=== PATIENT | female | born 1940 | race Caucasian/White ===

== ENCOUNTER 2020-05-23 13:20 | Outpatient (CLI) | payer MEDICARE, SELFPAY ==
--- NOTE | 2020-05-23 13:37 | ECHO_ITS ---
Patient Info Name: Bessy Wallace Age: 79 years : 1940 Gender: Female Ht: 60 in Wt: 112 lbs BSA: 1.47 m2 HR: 88 bpm BP: 145 / 77 mmHg Technical Quality: Fair Exam Date: 05/23/2020 1:47 PM Exam Location: [facility] Patient Status: Outpatient Admit Date: 05/23/2020 Staff Ordering Physician: Leo Rea PA-C Flooring Helper: Mariela Smith RDCS Attending Provider: Leo Rea PA-C Referring Physician: Rona WELSH; Exam Type: CA echo doppler color flow Study Info Indications R01.1 - Cardiac murmur, unspecified Complete two-dimensional, color flow and Doppler transthoracic echocardiogram is performed. Summary 1. Left ventricular chamber dimension is normal. 2. Ventricular septum is sigmoid shaped. 3. Left ventricular systolic function is normal, estimated at 60-65%. 4. The left ventricular diastolic function is grade II diastolic dysfunction. 5. E/e' 11 is mildly elevated. 6. Global longitudinal strain is normal at -19.2%. 7. Mild systolic anterior motion of mitral valve. No LVOT obstruction. 8. There is trace tricuspid valve regurgitation. 9. No pulmonary hypertension, estimated pulmonary arterial systolic pressure is 30 mmHg. Left Ventricle Ventricular septum is sigmoid shaped. E/e' 11 is mildly elevated. Global longitudinal strain is normal at -19.2%. Left ventricular chamber dimension is normal. Left ventricular systolic function is normal, estimated at 60-65%. The left ventricular diastolic function is grade II diastolic dysfunction. Right Ventricle Right ventricular chamber dimension is normal. Right ventricular systolic function is normal. Left Atria Left atrial chamber dimension is normal. Right Atria Right atrial chamber dimension is normal. Aortic Valve The aortic valve is trileaflet. There is no aortic valve stenosis. There is no aortic valve regurgitation. Pulmonic Valve There is no pulmonic regurgitation. Mitral Valve Mild systolic anterior motion of mitral valve. No LVOT obstruction. There is no mitral valve stenosis. There is no mitral valve regurgitation. Tricuspid Valve There is trace tricuspid valve regurgitation. No pulmonary hypertension, estimated pulmonary arterial systolic pressure is 30 mmHg. Pericardium/Pleural There is no pericardial effusion. Inferior Vena Cava Normal inferior vena cava with >50% collapse upon inspiration consistent with normal right atrial pressure, 5 mmHg. Aorta The aortic root size at the sinus of Valsalva is normal. Left Ventricular Outflow Tract Name Value Normal LVOT 2D LVOT Diameter 1.9 cm LVOT Doppler LVOT Peak Gradient 4 mmHg LVOT Mean Gradient 3 mmHg LVOT VTI 25 cm LVOT VTI/AV VTI Ratio 0.8 LVOT Stroke Volume 70 ml LVOT CO 5.4 l/min LVOT CI 3.7 l/min/m2 Pulmonic Valve Name
== END 2020-05-23 13:21 | disposition home or self-care (01) ==
PROVIDERS: PCP Physician Assistant; Visit Provider Physician Assistant
DX: R01.1 Cardiac murmur, unspecified (principal); R60.0 Localized edema
CPT/HCPCS: 93306

== ENCOUNTER 2021-01-01 10:27 | Outpatient (CLI) | payer MEDICARE, SELFPAY ==
[2021-01-01 11:14] LABS: Hematocrit 39.8 % (37.0-47.0); Hemoglobin 13.5 g/dL (12.0-15.0); Mean Corpuscular HGB Conc 33.9 g/dl (32-36); Mean Corpuscular Volume 88.4 fl (80-100); Mean Platelet Volume 9.3 fl (7.4-10.4); Platelet Count Result 316 k/mm3 (150-375); Red Cell Distribution Width 14.1 % (11.5-14.5); White Blood Count 6.6 K/mm3 (4.5-10.0)
[2021-01-01 11:31] LABS: Alanine Aminotransferase 15 U/L (4-35); Albumin Level 4.4 g/dL (3.5-5.1); Alkaline Phosphatase 75 U/L (38-126); Anion Gap 6 mmol/L (8-16); Aspartate Amino Transferase 30 U/L (14-36); Bilirubin,Total 0.4 mg/dL (0.2-1.3); Blood Urea Nitrogen 10 mg/dL (7-17); Calcium 10.2 mg/dL (8.4-10.2); Carbon Dioxide 30 mmol/L (22-30); Chloride 101 mmol/L (98-107); Estimated Glomerular Filt Rate > 60; Glucose 102 mg/dL (65-105); Potassium 4.6 mmol/L (3.4-5.0); Sodium 137 mmol/L (137-145)
[2021-01-01 12:00] LABS: Free T4 Free Thyroxine 1.35 ng/mL (0.78-2.19)
[2021-01-01 12:50] LABS: Folic Acid > 20.0 ng/mL (2.76->20); Vitamin B12 > 1000.0 pg/mL (239-931)
== END 2021-01-01 10:28 | disposition home or self-care (01) ==
PROVIDERS: PCP Physician Assistant; Visit Provider Physician Assistant
DX: R53.83 Other fatigue (principal); E03.9 Hypothyroidism, unspecified
CPT/HCPCS: 36415; 80053; 82607; 82746; 84439; 84443; 85027

== ENCOUNTER → 2021-11-30 08:27 | Outpatient (CLI) | payer MEDICARE, SELFPAY ==
[2021-11-30 20:42] LABS: SARS-CoV-2 RNA PCR Positive
== END ==
PROVIDERS: PCP Physician Assistant; Visit Provider Physician Assistant
DX: U07.1 COVID-19 (principal)
CPT/HCPCS: C9803; U0003; U0005

== ENCOUNTER 2022-01-01 09:43 | Outpatient (CLI) | payer MEDICARE, SELFPAY ==
[2022-01-01 11:02] LABS: Hematocrit 34.3 % (37.0-47.0); Hemoglobin 11.2 g/dL (12.0-15.0); Mean Corpuscular HGB Conc 32.7 g/dl (32-36); Mean Corpuscular Hemoglobin 27.2 pg (26-34); Mean Corpuscular Volume 83.3 fl (80-100); Mean Platelet Volume 8.9 fl (7.4-10.4); Platelet Count Result 471 k/mm3 (150-375); Red Blood Count 4.12 M/mm3 (4.2-5.4); Red Cell Distribution Width 14.7 % (11.5-14.5); White Blood Count 6.2 K/mm3 (4.5-10.0)
[2022-01-01 11:27] LABS: Free T4 Free Thyroxine 0.99 ng/mL (0.78-2.19)
[2022-01-01 11:53] LABS: Alanine Aminotransferase 18 U/L (4-35); Albumin Level 4.4 g/dL (3.5-5.1); Alkaline Phosphatase 88 U/L (38-126); Anion Gap 4 mmol/L (8-16); Aspartate Amino Transferase 28 U/L (14-36); Bilirubin,Total 0.2 mg/dL (0.2-1.3); Blood Urea Nitrogen 12 mg/dL (7-17); Calcium 9.6 mg/dL (8.4-10.2); Carbon Dioxide 30 mmol/L (22-30); Chloride 100 mmol/L (98-107); Estimated Glomerular Filt Rate > 60; Glucose 108 mg/dL (65-110); Potassium 4.7 mmol/L (3.4-5.0); Sodium 134 mmol/L (137-145)
[2022-01-01 12:56] LABS: Folic Acid > 20.0 ng/mL (2.76->20); Vitamin B12 > 1000.0 pg/mL (239-931)
== END 2022-01-01 09:44 | disposition home or self-care (01) ==
PROVIDERS: PCP Physician Assistant; Visit Provider Physician Assistant
DX: E03.9 Hypothyroidism, unspecified (principal); R53.83 Other fatigue
CPT/HCPCS: 36415; 80053; 82607; 82746; 84439; 84443; 85027

== ENCOUNTER 2022-07-04 11:37 | Outpatient (CLI) | payer MEDICARE, SELFPAY ==
[2022-07-04 12:54] LABS: Basophils Percent Auto 0.2 % (0.2-1.2); Eosinophils Absolute Auto 0.2 K/mm3 (0-0.3); Eosinophils Percent Auto 2.5 % (0-4.4); Hematocrit 36.1 % (37.0-47.0); Hemoglobin 11.3 g/dL (12.0-15.0); Immature Granulocyte Absolute 0.04 K/mm3 (0.00-0.031); Immature Granulocyte Percent A 0.5 % (0-0.5); Lymphocytes Absolute Auto 2.01 K/mm3 (0.9-3.2); Lymphocytes Percent Auto 23.8 % (18.3-44.2); Mean Corpuscular HGB Conc 31.3 g/dl (32-36); Mean Corpuscular Hemoglobin 27.1 pg (26-34); Mean Corpuscular Volume 86.6 fl (80-100); Mean Platelet Volume 9.4 fl (7.4-10.4); Monocytes Absolute Auto 0.9 K/mm3 (0.1-0.6); Monocytes Percent Auto 10.4 % (2.6-8.5); Neutrophils Absolute Auto 5.3 K/mm3 (1.3-6.7); Neutrophils Percent Auto 62.6 % (45.5-73.1); Platelet Count Result 349 k/mm3 (150-375); Red Blood Count 4.17 M/mm3 (4.2-5.4); Red Cell Distribution Width 16.9 % (11.5-14.5); White Blood Count 8.4 K/mm3 (4.5-10.0)
[2022-07-04 13:19] LABS: Iron 43 ug/dL (37-170)
[2022-07-04 13:28] LABS: Percent Iron Saturation 11 % (20-50)
== END 2022-07-04 11:38 | disposition home or self-care (01) ==
LOC: ANHLAB 11:40
PROVIDERS: PCP Physician Assistant; Visit Provider Physician Assistant
DX: D64.9 Anemia, unspecified (principal)
CPT/HCPCS: 36415; 83540; 83550; 85025

== ENCOUNTER 2022-09-06 11:15 | Emergency (ER) | payer MEDICARE, SELFPAY ==
--- NOTE | ~2022-09-06 | US_ITS ---
EXAMINATION:US venous doppler LE RT INDICATION:Leg swelling TECHNIQUE: Multiple grayscale, color flow and Doppler images of the right lower extremity deep venous systems were obtained and reviewed. COMPARISON:No prior studies for comparison. FINDINGS: The common femoral, superficial femoral and popliteal veins demonstrate normal respiratory variation, augmentation and compressibility. Color flow is also seen within the posterior tibial, pe roneal, greater saphenous and profunda veins. IMPRESSION: 1: No lower extremity deep venous thrombosis. Reviewed, dictated and finalized at location A.
[2022-09-06 11:18] VITALS: BP 139/51; PULSE 90; RESP 16; TEMP 37.3; O2SAT 99
[2022-09-06 14:21] LABS: D Dimer 1.36 ug/mL (<0.48)
--- NOTE | 2022-09-06 14:29 | ED.GENADULT ---
HPI - General Adult General Chief complaint: Skin/Abscess/Foreign Body Stated complaint: sent by PCP for ankle swelling Time Seen by Provider: 09/06/22 11:24 History of Present Illness HPI narrative: 81-year-old female presents for evaluation of right lower extremity redness and swelling throughout the week. Patient was seen at an urgent care and started on Keflex but they felt they should come to the ER for a second opinion. No prior DVT. No chest pain or shortness of breath. Related Data Home Medications Medication Instructions Recorded Confirmed mecobalamin (vitamin B12) 5,000 5,000 mcg PO DAILY 06/27/20 08/20/22 mcg lozenge multivitamin (Multiple Vitamins 1 tablet PO DAILY 06/27/20 08/20/22 tablet) turmeric 400 mg capsule mg PO 06/27/20 08/20/22 cephalexin 500 mg capsule mg 09/06/22 Allergies Allergy/AdvReac Type Severity Reaction Status Date / Time Penicillins Allergy Severe breathing Verified 08/20/22 14:24 problems amoxicillin Allergy Mild Unknown Verified 08/20/22 14:24 POTASSIUM CLAVULANATE Allergy Mild Unknown Uncoded 08/20/22 14:24 Review of Systems Review of Systems: CONSTITUTIONAL: Denies fever, chills, or sweats. EYES: Denies visual changes, redness, or discharge. ENT: Denies rhinorrhea, congestion, sore throat, or otalgia. CARDIOVASCULAR: Denies chest pain, palpitations, or edema. RESPIRATORY: Denies cough or dyspnea. GASTROINTESTINAL: Denies abdominal pain, nausea, vomiting, or diarrhea. GENITOURINARY: Denies dysuria or hematuria. SKIN: Denies rash or itching. MUSCULOSKELETAL: Denies back pain, joint pain, or myalgia. NEUROLOGIC: Denies headache, numbness, or weakness. PSYCHIATRIC: Denies anxiety or depression. [facility] Past Medical History Medical History (Updated 09/06/22 @ 15:22 by Ramón Rockwell DO) Dementia Family History Family History Other Diabetes mellitus Social History Social History Smoking status: Never smoker Second hand tobacco smoke exposure: No Alcohol intake: never Alcohol use details: very rarely Substance use: never Exam Narrative: GENERAL: Well-appearing, well-nourished, and in no acute distress. HEAD: Normocephalic, atraumatic. EYES: PERRLA and EOMI. ENT: Nares clear, no rhinorrhea or epistaxis. Mucous membranes moist. NECK: Supple. CHEST: Clear to auscultation. No respiratory distress. HEART: Regular rate and rhythm. No murmur heard. Normal peripheral pulses. ABDOMEN: Soft, nontender, nondistended, normal active bowel sounds. EXTREMITIES: Normal range of motion. No edema. SKIN: Warm, dry, no rash. Right ankle erythema and 2+ pitting edema NEURO: No focal deficits. Alert and oriented x3. PSYCH: Normal mood and affect. Course Vital Signs Vital signs: Vital Signs Temperature 99.2 F 09/06/22 11:18 Pulse Rate 90 09/06/22 11:18 Respiratory Rate 16 09/06/22 11:18 Blood Pressure 139/51 L 09/06/22 11:18 Pulse Oximetry 99 09/06/22 11:18 Oxygen Delivery Room Air 09/06/22 11:18 Temperature 99.2 F 09/06/22 11:18 Pulse Rate 90 09/06/22 11:18 Respiratory Rate 16 09/06/22 11:18 Blood Pressure 139/51 L 09/06/22 11:18 Pulse Oximetry 99 09/06/22 11:18 Oxygen Delivery Room Air 09/06/22 11:18 Medical Decision Making MDM Narrative Medical decision making narrative: D-dimer is positive, venous Doppler with no evidence of DVT. He is already taking Keflex we will add Bactrim to her antibiotic regimen. Vital Signs Vital Signs: Vital Signs Temperature 99.2 F 09/06/22 11:18 Pulse Rate 90 09/06/22 11:18 Respiratory Rate 16 09/06/22 11:18 Blood Pressure 139/51 L 09/06/22 11:18 Pulse Oximetry 99 09/06/22 11:18 Oxygen Delivery Room Air 09/06/22 11:18 Temperature 99.2 F 09/06/22 11:18 Pulse Rate 90 09/06/22 11:18 Respiratory Rate 16 09/06/22 11:18 Bloo
== END 2022-09-06 16:05 | disposition home or self-care (01) ==
PROVIDERS: Emergency Provider Emergency Medicine; PCP Physician Assistant
DX: L03.115 Cellulitis of right lower limb (principal); F03.90 Unspecified dementia, unspecified severity, without behavioral disturbance, psychotic disturbance, mood disturbance, and anxiety
CPT/HCPCS: 36415; 85380; 93971; 99284

== ENCOUNTER 2023-01-03 08:26 | Outpatient (CLI) | payer MEDICARE, SELFPAY ==
[2023-01-03 09:51] LABS: Hemoglobin 11.4 g/dL (12.0-15.0); Mean Corpuscular HGB Conc 31.7 g/dl (32-36); Mean Corpuscular Hemoglobin 28.2 pg (26-34); Mean Corpuscular Volume 89.1 fl (80-100); Mean Platelet Volume 9.7 fl (7.4-10.4); Platelet Count Result 325 k/mm3 (150-375); Red Blood Count 4.04 M/mm3 (4.2-5.4); Red Cell Distribution Width 15.7 % (11.5-14.5); White Blood Count 6.8 K/mm3 (4.5-10.0)
[2023-01-03 10:06] LABS: Alanine Aminotransferase 20 U/L (6-35); Albumin Level 4.1 g/dL (3.5-5.1); Alkaline Phosphatase 80 U/L (38-126); Anion Gap 6 mmol/L (8-16); Aspartate Amino Transferase 29 U/L (14-36); Bilirubin,Total 0.4 mg/dL (0.2-1.3); Blood Urea Nitrogen 8 mg/dL (7-17); Calcium 9.1 mg/dL (8.4-10.2); Carbon Dioxide 28 mmol/L (22-30); Chloride 102 mmol/L (98-107); Cholesterol 236 mg/dL (0-200); Estimated Glomerular Filt Rate > 60; Glucose 101 mg/dL (65-110); HDL Direct 72 mg/dL; Potassium 4.2 mmol/L (3.4-5.0); Sodium 136 mmol/L (137-145); Triglycerides 76 mg/dL (<150)
[2023-01-03 10:17] LABS: LDL Cholesterol Direct 103 mg/dL
[2023-01-03 10:19] LABS: Free T4 Free Thyroxine 1.56 ng/mL (0.78-2.19)
[2023-01-03 11:10] LABS: Folic Acid 19.2 ng/mL (2.76->20)
== END 2023-01-03 08:27 | disposition home or self-care (01) ==
PROVIDERS: PCP Physician Assistant; Visit Provider Physician Assistant
DX: R53.83 Other fatigue (principal); E03.9 Hypothyroidism, unspecified; E78.5 Hyperlipidemia, unspecified
CPT/HCPCS: 36415; 80053; 80061; 82607; 82746; 84439; 84443; 85027

== ENCOUNTER 2023-02-11 15:30 | Outpatient (RCR) | payer MEDICARE, SELFPAY ==
--- NOTE | 2023-01-15 15:11 | PTOPEVAL1 ---
Assessment and note entered by Radha Escoto, PT Evaluation Information Assessment Status Evaluation Diagnosis weakness of legs Subjective Information had one fall few days ago, with rushing around home when son came to pick her up--loss of balance with turning around; son helped her up off the floor; have not been doing any leg exercises, is weaker and not as active as she used to be; does go out with family, but not as much as before; Reported Pain Level Pain Score 0: Self Report Assessment PT Clinical Summary Tasia has the diagnosis of leg weakness. She has had one fall and does not do any leg exercises. She lives alone, with her 2 sons assisting with laundry, transportation and home tasks PRN. She does have the diagnosis of dementia, but cooperative, followed commands and able to recall her history info. With the evaluation, she has decreased strength of R and L LE, TUG time of 28 seconds, 2 minute walking test distance of 200', Tinetti balance score of 16/28= high risk for falls; Skilled PT services are indicated for therapeutic exercises to increase LE strength, gait and balance skills, education for safety with mobility and HEP. Plan of Care Interventions Gait Training,Neuro Re-education,Patient/Caregiver Education,Therapeutic Activities,Therapeutic Exercise PT Services Indicated Yes Treatment Frequency and 2x/wk for 4 weeks Duration These treatments will address the objective and functional deficits as defined above. The patient will be advanced safely and appropriately in order for the patient to progress towards his/her prior level of function. Additional exercises will be introduced and as well as a comprehensive home exercise program upon discharge, if needed, ?to ensure carryover of functional gains achieved in the clinic. This treatment plan has been reviewed and agreement upon by the patient.
--- NOTE | 2023-02-11 16:14 | PTOPDC ---
Assessment and note entered by Radha Escoto, PT Evaluation Information Assessment Status Discharge Diagnosis weakness of legs Subjective Information Tasia and her son Armani report: no falls, walking better, doing her exercises at home, have been going into basement and doing laundry; ready to be done with therapy. Reported Pain Level Pain Score 0: Self Report Assessment PT Clinical Summary Tasia has received 6 PT sessions. Compared to the initial evaluation, she has improved in all areas: LE strength, TUG time by 6 sec, Tinetti balance score by 8 points; sit/stand transfer without use of UE's; education completed for HEP and safety; 2 minute walking test distance is the same; The goals were achieved, except 2 min walk time distance. Discharge PT services. Plan of Care PT Services Indicated No
== END 2023-03-31 10:30 | disposition home or self-care (01) ==
LOC: ANHPT 15:30
PROVIDERS: PCP Physician Assistant; Visit Provider Physician Assistant
DX: R29.898 Other symptoms and signs involving the musculoskeletal system (principal)
CPT/HCPCS: 97110; 97112; 97116; 97161; 97530

== ENCOUNTER 2023-05-01 11:13 | Outpatient (CLI) | payer MEDICARE, SELFPAY ==
[2023-05-01 12:25] LABS: Appearance Urine Clear (Clear); Bilirubin Urine Negative (Negative); Blood Urine Negative (Negative); Color Urine Dark Yellow (Yellow); Glucose Urine UA Negative (Negative); Ketones Urine Negative (Negative); Leukocyte Esterase Ur Negative LEU/UL (NEGATIVE); Nitrate Urine Negative (Negative); Protein Urine Negative (Negative); Specific Grav Ur 1.014 (1.001-1.035); Urobilinogen Urine 0.2 mg/dL (<2.0)
[2023-05-01 12:30] LABS: Add Urine Microscopic? NO
== END 2023-05-01 11:14 | disposition home or self-care (01) ==
PROVIDERS: PCP Physician Assistant; Visit Provider Physician Assistant
DX: R35.0 Frequency of micturition (principal)
CPT/HCPCS: 81003; 87086

== ENCOUNTER 2023-06-20 13:04 | Outpatient (RCR) | payer MEDICARE, SELFPAY ==
[2023-06-20 13:20] VITALS: BMI 23.8
== END 2023-09-04 13:40 | disposition home or self-care (01) ==
LOC: ANHWOC 13:04
PROVIDERS: PCP Physician Assistant; Visit Provider Physician Assistant
DX: L97.919 Non-pressure chronic ulcer of unspecified part of right lower leg with unspecified severity (principal)
CPT/HCPCS: 99213; A9270; G0463

== ENCOUNTER 2023-07-15 12:50 | Outpatient (CLI) | payer MEDICARE, SELFPAY ==
--- NOTE | 2023-07-15 12:57 | ECHO_ITS ---
Patient Info Name: Tasia Wallace Age: 82 years : 1940 Gender: Female Ht: 62 in Wt: 135 lbs BSA: 1.65 m2 HR: 68 bpm BP: 156 / 74 mmHg Technical Quality: Fair Exam Date: 07/15/2023 1:09 PM Exam Location: [facility] Patient Status: Outpatient Admit Date: 07/15/2023 Staff Ordering Physician: Leo Rea PA-C Turkey Farmer: Mariela Smith RDCS Attending Provider: Leo Rea PA-C Referring Physician: Rona WELSH; Exam Type: CA echo doppler color flow Study Info Indications R60.0 - Localized edema Complete two-dimensional, color flow and Doppler transthoracic echocardiogram is performed. Summary 1. Complete two-dimensional, color flow and Doppler transthoracic echocardiogram is performed. 2. Left ventricular chamber dimension is normal. 3. Left ventricular systolic function is normal, estimated at 60-65%. 4. The left ventricular diastolic function is grade I diastolic dysfunction. 5. Global longitudinal strain is normal lat -18.0%. 6. Left atrial chamber dimension is mildly enlarged. 7. There is moderate aortic valve sclerosis. 8. There is trace tricuspid valve regurgitation. 9. No pulmonary hypertension, estimated pulmonary arterial systolic pressure is 33 mmHg. Left Ventricle Global longitudinal strain is normal lat -18.0%. Tissue doppler is not performed. Left ventricular chamber dimension is normal. Left ventricular systolic function is normal, estimated at 60-65%. The left ventricular diastolic function is grade I diastolic dysfunction. Right Ventricle Right ventricular systolic function is normal and with normal TAPSE 2.6 cm. Right ventricular chamber dimension is normal. Left Atria Left atrial chamber dimension is mildly enlarged. Right Atria Right atrial chamber dimension is normal. Aortic Valve The aortic valve is trileaflet. There is moderate aortic valve sclerosis. There is no aortic valve stenosis. There is no aortic valve regurgitation. Pulmonic Valve There is no pulmonic regurgitation. Mitral Valve There is no mitral valve stenosis. There is no mitral valve regurgitation. Tricuspid Valve There is trace tricuspid valve regurgitation. No pulmonary hypertension, estimated pulmonary arterial systolic pressure is 33 mmHg. Pericardium/Pleural There is no pericardial effusion. Inferior Vena Cava Normal inferior vena cava with >50% collapse upon inspiration consistent with normal right atrial pressure, 5 mmHg. Aorta The aortic root size at the sinus of Valsalva is normal. Left Ventricular Outflow Tract Name Value Normal LVOT 2D LVOT Diameter 1.9 cm LVOT Doppler LVOT Peak Gradient 7 mmHg LVOT Mean Gradient 4 mmHg LVOT VTI 31 cm LVOT VTI/AV VTI Ratio 0.8 LVOT Stroke Volume 92 ml LVOT CO 6.3 l/min LVOT CI 3.8 l/min/m2 Pulmonic Valve Name Value Normal
== END 2023-07-15 12:51 | disposition home or self-care (01) ==
LOC: ANHCARD 12:52
PROVIDERS: PCP Physician Assistant; Visit Provider Physician Assistant
DX: R60.0 Localized edema (principal)
CPT/HCPCS: 93306

== ENCOUNTER 2023-08-16 21:45 | Inpatient (IN) | payer MEDICARE, SELFPAY ==
--- NOTE | ~2023-08-16 | XR_ITS ---
XR chest 1V portable DATE: 08/16/2023 23:58 INDICATION: Altered mental status TECHNIQUE: Portable upright AP chest on 08/16/2023 at 2336 hours COMPARISON: None FINDINGS: There is mild infiltrate or atelectasis in the lower lung zones. The lungs otherwise appear clear. No pleural effusion is evident. There is pulmonary vascular redistribution and mild prominenc e of minor fissure which may indicate mild congestive change. Aortic calcification. Osteopenia. IMPRESSION: Mild congestive changes Mild infiltrate or atelectasis in the lower lung zones Reviewed, dictated and finalized at location A.
--- NOTE | ~2023-08-16 | CT_ITS ---
EXAMINATION: CT abdomen pelvis wo con DATE: 08/17/2023 01:47 INDICATION: Acute renal failure TECHNIQUE: Computed tomography (CT) of the abdomen and pelvis was performed without intravenous contr ast. Automated exposure control and iterative reconstruction technique were employed. Exam dose: 635 .81 mGy-cm total exam DLP. COMPARISON: None. FINDINGS: Calcified right hilar and subcarinal nodes and calcified right lower lobe pulmonary granulo mas, consistent with old granulomatous disease. Additionally, there are multiple calcified hepatic an d splenic granulomas. No infiltrate or consolidation in the lower lung zones. Heart size is within normal range. No pericar dial or pleural effusion. Small sliding hiatal hernia. 1.3 cm probable lateral segment left hepatic cyst. Multiple stones in the dependent aspect of the gallbladder. The gallbladder is distended. No gallblad doris wall thickening or pericholecystic fluid or fat stranding is noted. No pancreatic mass lesion, calcification or ductal dilatation is detected. Normal morphology of the adrenal glands. 2.5 mm left renal nonobstructing calculus. No other urinary tract calculus or hydroureteronephrosis is detected. The uterus and adnexal areas are unremarkable. There is extensive calcification of the abdominal aorta and proximal right renal artery. Normal gina brandy of the abdominal aorta. No intraperitoneal or retroperitoneal mass lesion or lymphadenopathy or ascites. Bilateral fat containing inguinal hernias. There are numerous diverticula of the left colon; no evidence of diverticulitis. No bowel obstructio n or free air. Moderate anterior wedge compression fracture deformity of T12, likely chronic. Grade 1 anterolisthesis at L4-5 due to degenerative changes apophyseal joints. Mildly severe degenera tive disc disease at L5-S1. IMPRESSION: Small sliding hiatal hernia Probable left hepatic 1.3 cm cyst Cholelithiasis Nonobstructing 2.5 mm left renal calculus Diverticulosis of the colon; no evidence of diverticulitis Reviewed, dictated and finalized at Location A. Reviewed, dictated and finalized at location A.
--- NOTE | ~2023-08-16 | CT_ITS ---
EXAMINATION: CT brain wo con DATE: 08/16/2023 23:42 INDICATION: Altered mental status. TECHNIQUE: Computed tomography (CT) of the head was performed without intravenous contrast. The mA wa s adjusted according to patient size. Iterative reconstruction technique was employed. The dose-lengt h product was 605.33 mGy-cm. COMPARISON: Head CT 10/14/2019 FINDINGS: There are scattered areas of low attenuation in the cerebral white matter. There is no intr acranial hemorrhage, acute infarction, or abnormal intracranial mass lesion. The ventricles are urvashi l in size. There are likely changes of ocular lens replacement surgeries. There is mild mucosal thick ening in the paranasal sinuses. The mastoid air cells are normal. IMPRESSION: 1. Stable mild nonspecific cerebral white matter disease, which likely represents chronic small vesse l ischemic disease. Reviewed, dictated and finalized at location E. IMPRESSION: 1. Stable mild nonspecific cerebral white matter disease, which likely represen ts chronic small vessel ischemic disease.
[2023-08-16 21:46] VITALS: BP 107/43; PULSE 80; RESP 17; TEMP 36.7; O2SAT 97
[2023-08-16 22:32] VITALS: PULSE 74
[2023-08-16 22:34] VITALS: BP 122/38; PULSE 71; RESP 18; TEMP 37; O2SAT 96
--- NOTE | 2023-08-16 23:08 | ECG_ITS ---
Measurements Intervals [place] Rate: 70 P: 32 MA: 157 QRS: 18 QRSD: 135 T: 17 QT: 458 QTc: 497 Interpretive Statements SINUS RHYTHM ATRIAL PREMATURE COMPLEXES RIGHT BUNDLE BRANCH BLOCK BASELINE ARTIFACT- I, II, III, AVR, AVL, AVF ABNORMAL ECG COMPARED TO ECG 10/14/2019 16:08:22 RIGHT BUNDLE-BRANCH BLOCK NOW PRESENT Electronically Signed On 08-17-2023 7:49:29 CDT by Ryan South D.O.
[2023-08-16 23:30] LABS: Alveolar/Arterial O2 Gradient 17.7 mmHg; Base Excess ABG 1.7 mEq/l (+/-2.0); Fractional Inspired Oxygen 21 %; HCO3 ABG 25.6 mEq/l (22.0-26.0); Oxygen Content ABG 14.4 %vol (16.0-22.0); Oxyhemoglobin 95.2 % THb (90.0-100.0); PCO2 ABG 37.4 mmHg (35.0-45.0); PO2 ABG 87.2 mmHg (80.0-100.0); PO2 FiO2 Ratio Arterial Blood 4.15 %; Site Drawn RIGHT BRACHIAL; Total Hemoglobin 10.7 g/dL (12.0-18.0); pH ABG 7.453 (7.350-7.450)
[2023-08-16 23:31] LABS: Device ROOM AIR
--- NOTE | 2023-08-16 23:44 | ED.GENADULT ---
HPI - General Adult General Chief complaint: Altered Mental Status Stated complaint: confusion Time Seen by Provider: 08/16/23 22:43 History of Present Illness HPI narrative: Patient 82-year-old female who presents the emergency department with chief complaint of altered mental status. Per the patient's family the patient is normally alert and oriented x4 and able to answer all questions the last known well was around 9 PM last night where she was able to answer all questions appropriately the son reports that during the day today he talked her on the phone and she seemed initially normal but then had some episodes of confusion. The patient denies chest pain denies shortness of breath denies fever they report no trauma to report there were no signs of falls at the house or signs of trauma at the house. Patient denies vomiting denies diarrhea denies chest pain or shortness of breath Related Data Home Medications Medication Instructions Recorded Confirmed multivitamin (Multiple Vitamins 1 tablet PO DAILY 06/27/20 06/20/23 tablet) aripiprazole 5 mg tablet 5 mg PO DAILY 01/06/23 06/20/23 Allergies Allergy/AdvReac Type Severity Reaction Status Date / Time Penicillins Allergy Severe breathing Verified 06/26/23 13:57 problems amoxicillin Allergy Mild Unknown Verified 06/26/23 13:57 POTASSIUM CLAVULANATE Allergy Mild Unknown Uncoded 06/26/23 13:57 Review of Systems Review of Systems: A 10 system review of systems was completed on the patient and is negative except for what is stated in the HPI. Nursing and ancillary documentation was reviewed. [facility] Past Medical History Medical History (Updated 08/17/23 @ 04:32 by Julien Shen MD) Dementia Family History Family History Other Diabetes mellitus Social History Social History Smoking status: Never smoker Second hand tobacco smoke exposure: No Alcohol intake: never Alcohol use details: very rarely Substance use: never Substance use type: does not use Lack of Transportation: No Lack of Food: Never True Current Housing: I Have Housing Concerned About Future Housing: No Difficulty Paying Gas/Electric Bills: No Difficulty Paying for Meds: No Currently Unemployed: No Education: High School Diploma/GED Difficulty w/ Childcare or Family Care: No Living arrangements: alone Occupation/Education: retired Gender identity (if verbalized by the patient): Female Exam Narrative: GENERAL: Well-appearing, well-nourished, and in no acute distress. HEAD: Normocephalic, atraumatic. EYES: PERRLA and EOMI. ENT: Nares clear, no rhinorrhea or epistaxis. Mucous membranes moist. NECK: Supple. CHEST: Clear to auscultation. No respiratory distress. HEART: Regular rate and rhythm. No murmur heard. Normal peripheral pulses. ABDOMEN: Soft, nontender, nondistended, normal active bowel sounds. EXTREMITIES: Normal range of motion. No edema. SKIN: Warm, dry, no rash. NEURO: No focal deficits. Alert and oriented x2 slow to respond confused. PSYCH: Normal mood and affect. Course Vital Signs Vital signs: Vital Signs Temperature 36.7 C 08/16/23 21:46 Pulse Rate 80 08/16/23 21:46 Respiratory Rate 17 08/16/23 21:46 Blood Pressure 107/43 L 08/16/23 21:46 Pulse Oximetry 97 08/16/23 21:46 Oxygen Delivery Room Air 08/16/23 21:46 Temperature 36.6 C 08/17/23 03:50 Pulse Rate 60 08/17/23 03:50 Respiratory Rate 15 08/17/23 03:50 Blood Pressure 135/55 L 08/17/23 03:50 Pulse Oximetry 96 08/17/23 03:50 Oxygen Delivery Room Air 08/16/23 21:46 Medical Decision Making MDM Narrative Medical decision making narrative: Differential diagnosis includes UTI, pneumonia, electrolyte abnormality, dehydration Laboratory studies were obtained on the patient which showed a white count of 8.9 hemo
[2023-08-16 23:47] LABS: Ethanol < 10 mg/dL (<10)
[2023-08-16 23:48] LABS: Alanine Aminotransferase 19 U/L (6-35); Albumin Level 3.9 g/dL (3.5-5.1); Alkaline Phosphatase 77 U/L (38-126); Anion Gap 10 mmol/L (8-16); Aspartate Amino Transferase 37 U/L (14-36); Bilirubin,Total 0.3 mg/dL (0.2-1.3); Blood Urea Nitrogen 34 mg/dL (7-17); Calcium 9.3 mg/dL (8.4-10.2); Carbon Dioxide 29 mmol/L (22-30); Chloride 89 mmol/L (98-107); Estimated CRCL calculation 13 ml/min; Estimated Glomerular Filt Rate 18; Glucose 131 mg/dL (65-110); Sodium 128 mmol/L (137-145)
[2023-08-16 23:53] LABS: INR 0.9; Prothrombin Time 12.7 Seconds (11.1-14.7)
[2023-08-16 23:54] LABS: Partial Thromboplastin Time 29.7 SECONDS (22.3-36.8)
[2023-08-16 23:59] LABS: Troponin I 0.028 ng/mL (0.000-0.034)
[2023-08-17] VITALS (10 sets, daily range): BP systolic 124–159; BP diastolic 55–67; PULSE 60–99; RESP 12–20; TEMP 36.4–36.6; O2SAT 94–100; BMI 27.3
[2023-08-17 00:05] LABS: Basophils Percent Auto 0.3 % (0.2-1.2); Eosinophils Percent Auto 0.2 % (0-4.4); Hematocrit 30.8 % (37.0-47.0); Hemoglobin 10.1 g/dL (12.0-15.0); Immature Granulocyte Absolute 0.04 K/mm3 (0.00-0.031); Immature Granulocyte Percent A 0.4 % (0-0.5); Lymphocytes Absolute Auto 1.59 K/mm3 (0.9-3.2); Lymphocytes Percent Auto 17.8 % (18.3-44.2); Mean Corpuscular HGB Conc 32.8 g/dl (32-36); Mean Corpuscular Hemoglobin 27.7 pg (26-34); Mean Corpuscular Volume 84.4 fl (80-100); Mean Platelet Volume 8.6 fl (7.4-10.4); Monocytes Absolute Auto 1.1 K/mm3 (0.1-0.6); Monocytes Percent Auto 12.6 % (2.6-8.5); Neutrophils Absolute Auto 6.1 K/mm3 (1.3-6.7); Neutrophils Percent Auto 68.7 % (45.5-73.1); Platelet Count Result 476 k/mm3 (150-375); Red Blood Count 3.65 M/mm3 (4.2-5.4); Red Cell Distribution Width 18.7 % (11.5-14.5); White Blood Count 8.9 K/mm3 (4.5-10.0)
[2023-08-17 00:23] LABS: Procalcitonin 2.7 ng/mL
[2023-08-17 01:10] LABS: Influenza A QL RT-PCR Negative (Negative); Influenza B QL RT-PCR Negative (Negative); SARS-CoV-2 RNA PCR Negative (Negative)
[2023-08-17 01:12] LABS: Amphetamine Screen Urine Negative (Negative); Barbiturate Screen Urine Negative (Negative); Benzodiazepines Screen Urine Negative (Negative); Cannabinoid Screen Urine Negative (Negative); Cocaine Screen Urine Negative (Negative); Methadone Screen Urine Negative (Negative); Opiate Screen Urine Negative (Negative); Phencyclidine Screen Urine Negative (Negative)
[2023-08-17 01:18] LABS: Appearance Urine Cloudy (Clear); Bacteria Urine None Seen /hpf; Bilirubin Urine 1+ (Negative); Blood Urine Negative (Negative); Color Urine Dark Yellow (Yellow); Glucose Urine UA Negative (Negative); Ketones Urine Trace mg/dL (Negative); Leukocyte Esterase Ur Negative LEU/UL (Negative); Need Manual Microscopic Reviewed; Nitrate Urine Negative (Negative); Non Pathogenic Casts >20; Protein Urine Negative (Negative); Specific Grav Ur 1.022 (1.001-1.035); Squamous Epithelial Cell Urine None seen /hpf (Few); Urobilinogen Urine 0.2 mg/dL (<2.0); WBC Urine 0-5 /hpf
[2023-08-17 01:19] LABS: Add Urine Microscopic? YES
[2023-08-17] MEDS: SODIUM CHLORIDE 0.9% IV 1,000 ML 999 ML IV CONT (01:36)
--- NOTE | 2023-08-17 03:04 | PM.IMHP ---
H&P: HPI History of Present Illness Date/Time: 08/17/23 03:04 Chief Complaint: patient was brought to the ER for evaluation with altered mental status Narrative: She is a very pleasant 82 years old white female who is brought in by son for evaluation due to confusion. Patient called her yesterday and she initially had a normal conversation but then he noticed some episodes of confusion. She was brought to the ER for evaluation. Workup was done which showed dehydration and Sukhdev and IV hydration. Son tells me that patient had dental surgery in her upper gum 2 weeks ago and that could be the reason why she is not eating or drinking much. She is being placed in observation status for IV hydration and labs followup. Review of Systems Review of Systems: All systems reviewed & are unremarkable except as noted in HPI and below PMFSH Past Medical History Medical History (Updated 08/17/23 @ 04:32 by Julien Shen MD) Dementia Family History Family History Other Diabetes mellitus Social History Social History Smoking status: Never smoker Second hand tobacco smoke exposure: No Alcohol intake: never Alcohol use details: very rarely Substance use: never Substance use type: does not use Lack of Transportation: No Lack of Food: Never True Current Housing: I Have Housing Concerned About Future Housing: No Difficulty Paying Gas/Electric Bills: No Difficulty Paying for Meds: No Currently Unemployed: No Education: High School Diploma/GED Difficulty w/ Childcare or Family Care: No Living arrangements: alone Occupation/Education: retired Gender identity (if verbalized by the patient): Female Spiritual care concerns: No Meds Home Medications and Allergies Home Medications Medication Instructions Recorded Confirmed Type multivitamin (Multiple Vitamins 1 tablet PO DAILY 06/27/20 06/20/23 History tablet) donepezil 10 mg tablet 10 mg PO QHS #90 tabs 09/10/22 06/20/23 Rx aripiprazole 5 mg tablet 5 mg PO DAILY 01/06/23 06/20/23 History levothyroxine 112 mcg tablet See Rx Instructions .Route 01/06/23 06/20/23 Rx .COMPLEX #90 tabs pantoprazole 40 mg tablet,delayed 40 mg PO QAM #90 tabs 02/05/23 06/20/23 Rx release tolterodine 4 mg capsule,extended 4 mg PO DAILY #30 caps 03/06/23 06/20/23 Rx release 24 hr losartan 50 mg tablet 50 mg PO DAILY #90 tabs 06/02/23 06/20/23 Rx quetiapine 25 mg tablet See Rx Instructions .Route 06/02/23 06/20/23 Rx .COMPLEX #45 tabs mupirocin 2 % topical ointment 1 applic topical TID #22 grams 06/13/23 06/20/23 Rx collagenase clostridium histo. 250 1 applic topical DAILY #30 grams 06/16/23 06/20/23 Rx unit/gram topical ointment (Santyl) furosemide 40 mg tablet 40 mg PO QAM #90 tabs 06/16/23 06/20/23 Rx memantine 10 mg tablet See Rx Instructions .Route 06/26/23 06/26/23 Rx .COMPLEX #60 tabs citalopram 40 mg tablet 40 mg PO DAILY #90 tabs 07/09/23 Rx Allergies Allergy/AdvReac Type Severity Reaction Status Date / Time Penicillins Allergy Severe breathing Verified 06/26/23 13:57 problems amoxicillin Allergy Mild Unknown Verified 06/26/23 13:57 POTASSIUM CLAVULANATE Allergy Mild Unknown Uncoded 06/26/23 13:57 Vital Signs Vital Signs - 24 hr 08/16/23 21:46 08/16/23 22:32 08/16/23 22:34 Temperature 36.7 C 37.0 C Pulse Rate 80 74 71 Respiratory Rate 17 18 Blood Pressure 107/43 L 122/38 L Pulse Oximetry 97 96 Oxygen Delivery Room Air 08/17/23 00:55 08/17/23 02:28 Temperature Pulse Rate 72 62 Respiratory Rate 12 15 Blood Pressure 149/59 H 124/58 L Pulse Oximetry 98 98 Oxygen Delivery Exam Narrative: PHYSICAL EXAMINATION: Vital signs: Please see the chart General physical exam: patient feels tired and fatigued. She is interacting well with the staff and answering questions Head/eyes:
[2023-08-17 03:06] LABS: Troponin I 0.025 ng/mL (0.000-0.034)
[2023-08-17] MEDS: SODIUM CHLORIDE 0.9% IV 1,000 ML 100 ML IV CONT (03:49)
[2023-08-17 05:42] LABS: Anion Gap 6 mmol/L (8-16); Blood Urea Nitrogen 34 mg/dL (7-17); Carbon Dioxide 27 mmol/L (22-30); Chloride 94 mmol/L (98-107); Estimated CRCL calculation 16 ml/min; Estimated Glomerular Filt Rate 23; Glucose 99 mg/dL (65-110); Magnesium 1.8 mg/dL (1.6-2.3); Phosphorus 4.4 mg/dL (2.5-4.5); Potassium 3.6 mmol/L (3.4-5.0); Sodium 127 mmol/L (137-145)
--- NOTE | 2023-08-17 06:15 | ADMGEN ---
This patient, Tasia Wallace, was admitted to [facility] Surg Room 325-01. Patient/family oriented to hospital policies and general routines including ID bracelet, bed and alarms, visiting hours, pain management, procedures, bathroom and other care routines, personal items, smoking policy, room service/diet, and visiting hours. Information on how to activate the Rapid Response Team has been discussed. Patient/Family are encouraged to report perceived risks to care and to ask questions if they do not understand what they are told or what they should do.
[2023-08-17] MEDS: BENZOCAINE 20% DENTAL GEL 9 GM TUBE 1 APPLIC BY MOUTH (11:29)
[2023-08-17 14:36] LABS: Anion Gap 9 mmol/L (8-16); Blood Urea Nitrogen 25 mg/dL (7-17); Calcium 8.7 mg/dL (8.4-10.2); Carbon Dioxide 23 mmol/L (22-30); Chloride 95 mmol/L (98-107); Estimated CRCL calculation 24 ml/min; Estimated Glomerular Filt Rate 36; Glucose 145 mg/dL (65-110); Potassium 3.2 mmol/L (3.4-5.0); Sodium 127 mmol/L (137-145)
--- NOTE | 2023-08-17 15:07 | PM.IMPN ---
Progress Note: A&P Assessment and Plan (1) BEKA (acute kidney injury): Code(s): N17.9 - Acute kidney failure, unspecified Status: Acute Assessment and Plan: watch bmp (2) Dehydration: Code(s): E86.0 - Dehydration Status: Acute Assessment and Plan: Patient received IV hydration in the form of IV normal saline in the ER Continue with IV hydration with normal saline at 100 cc/hour Continue fluids (3) Urinary frequency: Code(s): R35.0 - Frequency of micturition Status: Acute Assessment and Plan: order UA UC (4) Hyperlipidemia: Code(s): E78.5 - Hyperlipidemia, unspecified Status: Acute Assessment and Plan: chronic and stable (5) Anemia: Code(s): D64.9 - Anemia, unspecified Status: Acute Assessment and Plan: chronic and stable (6) Hypothyroidism: Code(s): E03.9 - Hypothyroidism, unspecified Status: Acute Assessment and Plan: chronic and stable (7) Dementia: Qualifiers: Dementia type: Alzheimer's Alzheimer's disease onset: late-onset Dementia behavioral disturbance: without behavioral disturbance Qualified Code(s): G30.1 - Alzheimer's disease with late onset; F02.80 - Dementia in other diseases classified elsewhere without behavioral disturbance Code(s): F03.90 - Unspecified dementia, unspecified severity, without behavioral disturbance, psychotic disturbance, mood disturbance, and anxiety Status: Acute Assessment and Plan: chronic and stable on dementia medications (8) Elevated procalcitonin: Code(s): R79.89 - Other specified abnormal findings of blood chemistry Status: Acute Subjective Date/time seen: 08/17/23 15:07 Interval history: 82 years old white female who is? brought in by son for evaluation due to confusion.? Pt is admitted with dehydration and not eating here creat is 1.4, sodium is low and potassium is low.? Review of Systems Review of Systems: Confused/ history of Alzheimers All systems reviewed & are unremarkable except as noted in HPI and below Objective Data Vital Signs Vital Signs: Vital Signs - 24 hr 08/16/23 21:46 08/16/23 22:32 08/16/23 22:34 Temperature 36.7 C 37.0 C Pulse Rate 80 74 71 Respiratory Rate 17 18 Blood Pressure 107/43 L 122/38 L Pulse Oximetry 97 96 Oxygen Delivery Room Air 08/17/23 00:55 08/17/23 02:28 08/17/23 03:50 Temperature 36.6 C Pulse Rate 72 62 60 Respiratory Rate 12 15 15 Blood Pressure 149/59 H 124/58 L 135/55 L Pulse Oximetry 98 98 96 Oxygen Delivery 08/17/23 05:49 08/17/23 06:25 08/17/23 06:00 Temperature 36.6 C 36.4 C Pulse Rate 60 72 72 Respiratory Rate 19 20 20 Blood Pressure 137/55 L 159/67 H Pulse Oximetry 94 100 100 Oxygen Delivery Room Air 08/17/23 04:00 08/17/23 08:15 08/17/23 14:00 Temperature 36.4 C 36.6 C Pulse Rate 72 94 Respiratory Rate 20 12 Blood Pressure 159/67 H 146/65 H Pulse Oximetry 100 98 Oxygen Delivery Room Air Intake/Output Intake/Output: Intake & Output 08/14/23 08/15/23 08/16/23 08/17/23 23:59 23:59 23:59 23:59 Intake Total 1238 Balance 1238 Meds/Results Medications: Active Medications Generic Name Dose Route Start Last Admin Trade Name Freq PRN Reason Stop Dose Admin Acetaminophen 650 mg 08/17/23 03:14 Acetaminophen 325 Mg Tablet PO Q4H PRN Mild Pain (1-3) or Fever Al Hydrox/Mg Hydrox/Simethicone 30 ml 08/17/23 03:14 Mag Hydrox/Al Hydrox/Simeth 30 Ml Udc PO QID PRN Dyspepsia Benzocaine 1 applic 08/17/23 10:24 08/17/23 11:29 Benzocaine 20% Dental Gel 9 Gm Tube BY MOUTH 1 applic QID PRN Administration Oral Pain Sodium Chloride 1,000 mls @ 100 mls/hr 08/17/23 03:15 08/17/23 03:49 Normal Saline Iv IV CONT 100 mls/hr .Q10H MAIDA Administration Radiology Results: ITS Impressions Head CT 08/17/23 00:36 IMPRESSIO
[2023-08-17] MEDS: POTASSIUM CHLORIDE 20 MEQ PACKET (FOR LIQUID) PO (16:54)
[2023-08-17] MEDS: CITALOPRAM HYDROBROMIDE 20 MG TABLET PO (16:58)
[2023-08-17] MEDS: MULTIVITAMINS THERAPEUTIC TAB (*BKC) 1 TABLET PO (16:58)
[2023-08-17] MEDS: PANTOPRAZOLE 40 MG TABLET PO (16:58)
[2023-08-17] MEDS: LOSARTAN POTASSIUM 50 MG TABLET PO (20:31)
[2023-08-17] MEDS: DONEPEZIL HCL 10 MG TABLET PO (20:31)
--- NOTE | 2023-08-17 20:36 | PC.NURSE ---
On 08/17/23, the FISHING TOOL SUPERVISOR, Shirley, provided care and [facility]. I have reviewed the FISHING TOOL SUPERVISOR's documentation and agree with the findings.
[2023-08-17 23:39] LABS: Toxigenic C. Diff INVALID (NEGATIVE)
[2023-08-18] MEDS: SODIUM CHLORIDE 0.9% IV 1,000 ML 100 ML IV CONT ×2 (02:49→15:24)
[2023-08-18 06:00] VITALS: BP 114/48; PULSE 73; RESP 18; TEMP 37.7; O2SAT 97
[2023-08-18 07:04] LABS: Anion Gap 4 mmol/L (8-16); Blood Urea Nitrogen 9 mg/dL (7-17); Calcium 8.2 mg/dL (8.4-10.2); Carbon Dioxide 27 mmol/L (22-30); Chloride 101 mmol/L (98-107); Estimated CRCL calculation 61 ml/min; Estimated Glomerular Filt Rate > 60; Glucose 106 mg/dL (65-110); Potassium 3.3 mmol/L (3.4-5.0); Sodium 132 mmol/L (137-145)
[2023-08-18 08:00] VITALS: PULSE 73; RESP 18; O2SAT 97
[2023-08-18] MEDS: CITALOPRAM HYDROBROMIDE 20 MG TABLET PO (08:24)
[2023-08-18] MEDS: PANTOPRAZOLE 40 MG TABLET PO (08:24)
[2023-08-18] MEDS: POTASSIUM CHLORIDE 20 MEQ PACKET (FOR LIQUID) PO ×2 (08:24→17:39)
[2023-08-18] MEDS: MULTIVITAMINS THERAPEUTIC TAB (*BKC) 1 TABLET PO (08:24)
[2023-08-18 14:00] VITALS: BP 148/65; PULSE 98; RESP 18; TEMP 37.1; O2SAT 96
--- NOTE | 2023-08-18 14:33 | PM.DS ---
DS: Admitting Diagnosis Discharge Date 08/19/2023 Admitting Diagnosis altered mental status DS: Discharge Diagnosis Discharge Diagnosis (1) BEKA (acute kidney injury): Code(s): N17.9 - Acute kidney failure, unspecified Status: Acute Assessment and Plan: kidney function is better with fluid hydration (2) Dehydration: Code(s): E86.0 - Dehydration Status: Acute Assessment and Plan: Patient received IV hydration in the form of IV normal saline in the ER Continue with IV hydration with normal saline at 100 cc/hour Continue fluids kidney function is better with fluid hydration (3) Urinary frequency: Code(s): R35.0 - Frequency of micturition Status: Acute Assessment and Plan: UC is negative (4) Hyperlipidemia: Code(s): E78.5 - Hyperlipidemia, unspecified Status: Acute Assessment and Plan: chronic and stable (5) Anemia: Code(s): D64.9 - Anemia, unspecified Status: Acute Assessment and Plan: chronic and stable (6) Hypothyroidism: Code(s): E03.9 - Hypothyroidism, unspecified Status: Acute Assessment and Plan: chronic and stable (7) Dementia: Qualifiers: Alzheimer's disease onset: late-onset Dementia behavioral disturbance: without behavioral disturbance Dementia type: Alzheimer's Qualified Code(s): G30.1 - Alzheimer's disease with late onset; F02.80 - Dementia in other diseases classified elsewhere without behavioral disturbance Code(s): F03.90 - Unspecified dementia, unspecified severity, without behavioral disturbance, psychotic disturbance, mood disturbance, and anxiety Status: Acute Assessment and Plan: chronic and stable on dementia medications (8) Elevated procalcitonin: Code(s): R79.89 - Other specified abnormal findings of blood chemistry Status: Acute DS: Summary Hospital Course Hospital Course: 82 years old white female who is? brought in by son for evaluation due to confusion.? Pt is admitted with dehydration and not eating here creat is 1.4, sodium is low and potassium is low.?Pt encouraged to drink fluids. pt having low grade fever today resolved overnight . UC and BC are negative pt ok to DC today. ? Long discussion with her son today patient lives with him and his they will need more help at home to look after her on discharge Pt has a known history of dementia.? Time Spent with Patient Time attestation: Total time spent providing and/or coordinating discharge services:40 minutes on day of DC Exam Narrative: PHYSICAL EXAMINATION: Neck: Supple, full range of motion, trachea midline CVS: S1 + S2 + 0, regular rate and rhythm, no murmurs Respiratory: Bilaterally fair air entry in both lung shanks, mild B/L crackles, symmetric chest expansion, no distress Abdomen: Soft, non-tender, bowel sounds +ve, no organomegaly Extremities: No clubbing, no cyanosis, no edema, no calf tenderness Musculoskeletal: Moves all, adequate range of motion, no muscle spasms Skin: Warm, dry, no jaundice, no cyanosis Neurological: Awake, alert, cranial nerves II-XII intact, no focal neurological deficits Psychiatric: Normal mood, non suicidal DS: Data Data Completed and Pending Labs on day of discharge: Labs from last 24 hours 08/18/23 08/17/23 08/17/23 06:14 22:03 13:46 Sodium 132 L 127 L Potassium 3.3 L 3.2 L Chloride 101 95 L Carbon Dioxide 27 23 Anion Gap 4 L 9 BUN 9 D 25 H Creatinine 0.50 L 1.40 H Estim Creat Clear Calc 61 24 Estimated GFR > 60 36 L Glucose 106 145 H Calcium 8.2 L 8.7 C. difficile (PCR) Invalid Preliminary micro results at discharge 08/17/23 03:17 Sputum Culture - Preliminary Sputum 08/16/23 23:56 Blood Culture - Preliminary Blood 08/16/23 23:56 Blood Culture - Preliminary Blood Discharge Plan Discharge Attending physician on discharge: Anika Caballero
--- NOTE | 2023-08-18 14:35 | PM.IMPN ---
Progress Note: A&P Assessment and Plan (1) BEKA (acute kidney injury): Code(s): N17.9 - Acute kidney failure, unspecified Status: Acute Assessment and Plan: kidney function is better with fluid hydration (2) Dehydration: Code(s): E86.0 - Dehydration Status: Acute Assessment and Plan: Patient received IV hydration in the form of IV normal saline in the ER Continue with IV hydration with normal saline at 100 cc/hour Continue fluids kidney function is better with fluid hydration (3) Urinary frequency: Code(s): R35.0 - Frequency of micturition Status: Acute Assessment and Plan: Await UC results Pt had a low grade fever today (4) Hyperlipidemia: Code(s): E78.5 - Hyperlipidemia, unspecified Status: Acute Assessment and Plan: chronic and stable (5) Anemia: Code(s): D64.9 - Anemia, unspecified Status: Acute Assessment and Plan: chronic and stable (6) Hypothyroidism: Code(s): E03.9 - Hypothyroidism, unspecified Status: Acute Assessment and Plan: chronic and stable (7) Dementia: Qualifiers: Dementia type: Alzheimer's Alzheimer's disease onset: late-onset Dementia behavioral disturbance: without behavioral disturbance Qualified Code(s): G30.1 - Alzheimer's disease with late onset; F02.80 - Dementia in other diseases classified elsewhere without behavioral disturbance Code(s): F03.90 - Unspecified dementia, unspecified severity, without behavioral disturbance, psychotic disturbance, mood disturbance, and anxiety Status: Acute Assessment and Plan: chronic and stable on dementia medications (8) Elevated procalcitonin: Code(s): R79.89 - Other specified abnormal findings of blood chemistry Status: Acute Subjective Date/time seen: 08/18/23 14:35 Interval history: 82 years old white female who is? brought in by son for evaluation due to confusion.? Pt is admitted with dehydration and not eating here creat is 1.4, sodium is low and potassium is low.?Pt encouraged to drink fluids, pt having low grade fever today awaiting UC and BC results. Long discussion with her son today patient lives with him and his they will need more help at home to look after her on discharge Pt has a known history of dementia. Review of Systems Review of Systems: No specific complaints Exam Narrative: Vital signs: Please see the chart General physical exam: patient feels tired and fatigued. Respiratory: Bilaterally fair air entry in both lung shanks, mild B/L crackles, symmetric chest expansion, no distress Abdomen: Soft, non-tender, bowel sounds +ve, no organomegaly Extremities: No clubbing, no cyanosis, no edema, no calf tenderness Musculoskeletal: Moves all, adequate range of motion, no muscle spasms Skin: Warm, dry, no jaundice, no cyanosis Neurological: Awake, alert, cranial nerves II-XII intact, no focal neurological deficits Psychiatric: Normal mood, non suicidal Objective Data Vital Signs Vital Signs: Vital Signs - 24 hr 08/17/23 22:00 08/17/23 19:50 08/18/23 06:00 Temperature 36.6 C 37.7 C H Pulse Rate 99 99 73 Respiratory Rate 18 18 18 Blood Pressure 156/60 H 114/48 L Pulse Oximetry 94 94 97 Oxygen Delivery Room Air Intake/Output Intake/Output: Intake & Output 08/15/23 08/16/23 08/17/23 08/18/23 23:59 23:59 23:59 23:59 Intake Total 2238 250 Output Total 800 Balance 2238 -550 Meds/Results Medications: Active Medications Generic Name Dose Route Start Last Admin Trade Name Freq PRN Reason Stop Dose Admin Acetaminophen 650 mg 08/17/23 03:14 Acetaminophen 325 Mg Tablet PO Q4H PRN Mild Pain (1-3) or Fever Al Hydrox/Mg Hydrox/Simethicone 30 ml 08/17/23 03:14 Mag Hydrox/Al Hydrox/Simeth 30 Ml Udc PO QID PRN Dyspepsia Benzocaine 1 applic 08/17/23 10:24 08/17/23 11:29
[2023-08-18] MEDS: POTASSIUM CHLORIDE 20 MEQ PACKET (FOR LIQUID) 40 MEQ PO (15:23)
[2023-08-18] MEDS: ACETAMINOPHEN 325 MG TABLET 650 MG PO (21:38)
[2023-08-18] MEDS: LOSARTAN POTASSIUM 50 MG TABLET PO (21:39)
[2023-08-18] MEDS: DONEPEZIL HCL 10 MG TABLET PO (21:39)
[2023-08-18 22:00] VITALS: BP 134/66; PULSE 75; RESP 18; TEMP 36.6; O2SAT 99
[2023-08-19] MEDS: SODIUM CHLORIDE 0.9% IV 1,000 ML 100 ML IV CONT (03:02)
[2023-08-19 05:58] VITALS: BP 148/64; PULSE 76; RESP 18; TEMP 36.1; O2SAT 96
--- NOTE | 2023-08-19 06:42 | PC.NURSE ---
pt noted to have 350mL of urine output measured by hickey catheter. Bladder scan performed to confirm, bladder scanner shows 0mL
[2023-08-19] MEDS: MULTIVITAMINS THERAPEUTIC TAB (*BKC) 1 TABLET PO (08:54)
[2023-08-19] MEDS: PANTOPRAZOLE 40 MG TABLET PO (08:54)
[2023-08-19] MEDS: CITALOPRAM HYDROBROMIDE 20 MG TABLET PO (08:54)
[2023-08-19] MEDS: POTASSIUM CHLORIDE 20 MEQ PACKET (FOR LIQUID) PO (08:55)
[2023-08-19 14:00] VITALS: BP 142/59; PULSE 68; RESP 13; TEMP 37.1; O2SAT 97
== END 2023-08-19 17:46 | disposition home or self-care (01) | DRG 641 ==
LOC: ANHED 08-17 04:31 → ANH3MEDSUR 08-17 05:22
PROVIDERS: Admitting Provider Family Medicine; Emergency Provider Emergency Medicine; PCP Physician Assistant; Visit Provider Family Medicine
DX: E86.0 Dehydration (principal); N17.9 Acute kidney failure, unspecified; R35.0 Frequency of micturition; E78.5 Hyperlipidemia, unspecified; D64.9 Anemia, unspecified; E03.9 Hypothyroidism, unspecified; R79.89 Other specified abnormal findings of blood chemistry; F03.90 Unspecified dementia, unspecified severity, without behavioral disturbance, psychotic disturbance, mood disturbance, and anxiety; Z20.822 Contact with and (suspected) exposure to COVID-19
CPT/HCPCS: 36415; 36600; 70450; 71045; 74176; 80048; 80053; 80307; 81001; 82805; 83605; 83735; 84100; 84145; 84484; 85025; 85610; 85730; 87040; 87070; 87086; 87205; 87493; 87636; 93005; 96360; 97161; 97165; 97535; 99285; A9270; G0378; J7030

== ENCOUNTER 2023-09-18 17:11 | Outpatient (CLI) | payer MEDICARE, SELFPAY ==
[2023-09-18 18:05] LABS: Alanine Aminotransferase 17 U/L (6-35); Albumin Level 4.6 g/dL (3.5-5.1); Alkaline Phosphatase 71 U/L (38-126); Anion Gap 11 mmol/L (8-16); Aspartate Amino Transferase 26 U/L (14-36); Bilirubin,Total 0.3 mg/dL (0.2-1.3); Blood Urea Nitrogen 36 mg/dL (7-17); Calcium 9.2 mg/dL (8.4-10.2); Carbon Dioxide 28 mmol/L (22-30); Chloride 94 mmol/L (98-107); Estimated Glomerular Filt Rate > 60; Glucose 98 mg/dL (65-110); Potassium 4.3 mmol/L (3.4-5.0); Sodium 133 mmol/L (137-145)
== END 2023-09-18 17:12 | disposition home or self-care (01) ==
LOC: ANHLAB 17:12
PROVIDERS: PCP Physician Assistant; Visit Provider Physician Assistant
DX: R60.0 Localized edema (principal)
CPT/HCPCS: 36415; 80053

== ENCOUNTER 2024-01-03 15:10 | Emergency (ER) | payer MEDICARE, SELFPAY ==
--- NOTE | ~2024-01-03 | XR_ITS ---
EXAMINATION: XR chest 2V Exam Date/Time: 01/03/2024 15:38 MANAGER MILITARY HISTORY: cough Comparison: 08/16/2023. RESULT: Lines, tubes, and devices: None. Lungs and pleura: Senescent changes. Scattered atheromatous calcifications. Ill-defined nodular opac ity in the right midlung, with no correlate in the lateral view. Streaky left medial basilar opacitie s. Cardiomediastinal silhouette: Stable. Other: No acute osseous or upper abdominal finding. Stable moderate wedge deformity at T12. IMPRESSION: Streaky left medial basilar opacities may represent atelectasis or infection. Ill-defined left midlung opacity without a correlating the lateral view, may represent a subtle focus of infection or atelectasis. Recommend follow-up to ensure resolution. Reviewed, dictated and finalized at [facility]. GER [employer] IMPRESSION: Streaky left medial basilar opacities may represent atelectasis or infection. Ill-defined left midlung opacity without a correlating the lateral view, may re present a subtle focus of infection or atelectasis. Recommend follow-up to ensu re resolution.
[2024-01-03 15:19] VITALS: BP 166/66; PULSE 86; RESP 16; TEMP 37.2; O2SAT 97
--- NOTE | 2024-01-03 15:40 | ED.URI ---
HPI - URI/Sore Throat General Chief Complaint: Upper Respiratory Infection Stated Complaint: Cough Source: patient Mode of arrival: ambulatory Limitations: no limitations History of Present Illness HPI Narrative: 83-year-old female with hx dementia presented for complaint of cough for almost 10 days. Patient is a poor historian, most of the HPI and ROS was obtained from her son. Denies shortness of breath, wheezing, nausea, vomiting, diarrhea, fevers or chills. Taking Mucinex. Related Data Home Medications Medication Instructions Recorded Confirmed multivitamin (Multiple Vitamins 1 tablet PO DAILY 06/27/20 08/17/23 tablet) citalopram 20 mg tablet (Celexa) 20 mg PO DAILY 08/17/23 08/17/23 Allergies Allergy/AdvReac Type Severity Reaction Status Date / Time Penicillins Allergy Severe breathing Verified 01/03/24 15:24 problems amoxicillin Allergy Mild Unknown Verified 01/03/24 15:24 POTASSIUM CLAVULANATE Allergy Mild Unknown Uncoded 01/03/24 15:24 Review of Systems Review of Systems: CONSTITUTIONAL: Denies body aches, fever, chills, or sweats. EYES: Denies visual changes, redness, or discharge. ENT: Denies rhinorrhea, congestion, sore throat, or otalgia. CARDIOVASCULAR: Denies chest pain, palpitations, or edema. RESPIRATORY: Reports cough, denies sob, wheezing. SKIN: Denies rash, itching MUSCULOSKELETAL: Denies back pain, joint pain, or myalgia. NEUROLOGIC: Denies headache, numbness, tingling, or weakness. All systems reviewed & are unremarkable except as noted in HPI and below PMFSH Past Medical History Medical History (Updated 01/03/24 @ 17:14 by Albina Huber APRN) Dementia Family History Family History Other Diabetes mellitus Social History Social History Smoking status: Never smoker Second hand tobacco smoke exposure: No Alcohol intake: never Alcohol use details: very rarely Substance use: never Substance use type: does not use Lack of Transportation: No Lack of Food: Never True Current Housing: I Have Housing Concerned About Future Housing: No Difficulty Paying Gas/Electric Bills: No Difficulty Paying for Meds: No Currently Unemployed: No Education: High School Diploma/GED Difficulty w/ Childcare or Family Care: No Living arrangements: alone Occupation/Education: retired Gender identity (if verbalized by the patient): Female Spiritual care concerns: No Comments At time of signature, I have reviewed and agree with nursing past medical, surgical, social and family history unless otherwise noted. Please see nursing chart for further information. There is no relevant family history pertinent to the presenting complaint Exam Narrative: GENERAL: Well-appearing EYES: EOMI. No redness or drainage. Conjunctivae normal. ENT: Mucous membranes pink and moist. No rhinorrhea. NECK: Normal AROM. Supple. CHEST: No respiratory distress. Lungs diminished to all shanks, frequent manager inpatient cough. HEART: Regular rate and rhythm. murmur is appreciated. EXTREMITIES: No edema. SKIN: Warm, dry, no rash. NEURO: Alert and oriented x1. Cooperative. Gait steady. PSYCH: Normal affect. Course Course Emergency Course: Patient is aware of diagnosis, understands and agrees to treatment plan. Anticipatory guidance given. Patient agrees to follow-up as directed and is aware of reasons to seek care at the emergency department. Portions of this record may have been created with voice recognition software Level of Care: Express Care Visit Vital Signs Vital signs: Vital Signs Temperature 99 F 01/03/24 15:19 Pulse Rate 86 01/03/24 15:19 Respiratory Rate 16 01/03/24 15:19 Blood Pressure 166/66 H 01/03/24 15:19 Pulse Oximetry 97 01/03/24 15:19 Temperature 99 F 01/03/24 15:19 Pulse Rate 86 01/03/24 15:19 Respiratory
== END 2024-01-03 17:16 | disposition home or self-care (01) ==
PROVIDERS: Emergency Provider Nurse Practitioner Family; PCP Physician Assistant
DX: R05.9 Cough, unspecified (principal); F03.90 Unspecified dementia, unspecified severity, without behavioral disturbance, psychotic disturbance, mood disturbance, and anxiety
CPT/HCPCS: 71046; 99213; G0463

== ENCOUNTER 2024-01-22 17:13 | Outpatient (CLI) | payer MEDICARE, SELFPAY ==
--- NOTE | ~2024-01-22 | XR_ITS ---
EXAMINATION: XR chest 2V DATE: 01/22/2024 17:37 INDICATION: Cough, unspecified. TECHNIQUE: Frontal and lateral views of the chest were obtained. COMPARISON: Chest 2 views 01/03/2024, CT abdomen and pelvis 08/17/2023 FINDINGS: There is chronic peripheral septal thickening in the lungs with a lower lung predominance. Calcified right lung nodules and calcified hilar lymph nodes are consistent with old granulomatous di sease. No pleural effusion or pneumothorax. The heart size is normal. IMPRESSION: 1. Chronic interstitial lung disease. Reviewed, dictated and finalized at location E. OGRAPHIC PRINTER
[2024-01-22 18:11] LABS: Basophils Percent Auto 0.7 % (0.2-1.2); Eosinophils Absolute Auto 0.1 K/mm3 (0-0.3); Eosinophils Percent Auto 1.8 % (0-4.4); Hemoglobin 10.1 g/dL (12.0-15.0); Immature Granulocyte Absolute 0.01 K/mm3 (0.00-0.031); Immature Granulocyte Percent A 0.2 % (0-0.5); Lymphocytes Absolute Auto 1.72 K/mm3 (0.9-3.2); Lymphocytes Percent Auto 28.8 % (18.3-44.2); Mean Corpuscular HGB Conc 30.6 g/dl (32-36); Mean Corpuscular Hemoglobin 24.9 pg (26-34); Mean Corpuscular Volume 81.5 fl (80-100); Mean Platelet Volume 8.8 fl (7.4-10.4); Monocytes Absolute Auto 0.8 K/mm3 (0.1-0.6); Monocytes Percent Auto 13.9 % (2.6-8.5); Neutrophils Absolute Auto 3.3 K/mm3 (1.3-6.7); Neutrophils Percent Auto 54.6 % (45.5-73.1); Platelet Count Result 378 k/mm3 (150-375); Red Blood Count 4.05 M/mm3 (4.2-5.4); Red Cell Distribution Width 22.1 % (11.5-14.5)
[2024-01-22 18:33] LABS: Anisocytosis 1+ (NORMAL); Hypochromasia 1+ (NORMAL); Ovalocytes 1+ (NORMAL); Platelet Estimate Adequate (Adequate); Schistocytes None Seen (NORMAL)
[2024-01-22 19:12] LABS: Alanine Aminotransferase 19 U/L (6-35); Albumin Level 4.5 g/dL (3.5-5.1); Alkaline Phosphatase 73 U/L (38-126); Anion Gap 8 mmol/L (8-16); Aspartate Amino Transferase 33 U/L (14-36); Bilirubin,Total 0.4 mg/dL (0.2-1.3); Blood Urea Nitrogen 21 mg/dL (7-17); Calcium 9.4 mg/dL (8.4-10.2); Carbon Dioxide 29 mmol/L (22-30); Chloride 95 mmol/L (98-107); Cholesterol 264 mg/dL (0-200); Estimated Glomerular Filt Rate > 60; Glucose 139 mg/dL (65-110); HDL Direct 94 mg/dL; Potassium 4.3 mmol/L (3.4-5.0); Sodium 132 mmol/L (137-145); Triglycerides 143 mg/dL (<150)
[2024-01-22 19:23] LABS: LDL Cholesterol Direct 121 mg/dL
[2024-01-22 20:07] LABS: Free T4 Free Thyroxine 0.99 ng/mL (0.78-2.19)
[2024-01-22 20:20] LABS: Folic Acid 19.1 ng/mL (2.76->20); Vitamin B12 > 1000.0 pg/mL (239-931)
== END 2024-01-22 17:14 | disposition home or self-care (01) ==
PROVIDERS: PCP Physician Assistant; Visit Provider Physician Assistant
DX: R05.9 Cough, unspecified (principal); E78.5 Hyperlipidemia, unspecified; R53.83 Other fatigue; E03.9 Hypothyroidism, unspecified; J84.9 Interstitial pulmonary disease, unspecified
CPT/HCPCS: 36415; 71046; 80053; 80061; 82607; 82746; 84439; 84443; 85025

== ENCOUNTER 2024-01-30 17:11 | Outpatient (CLI) | payer MEDICARE, SELFPAY ==
[2024-01-30 18:02] LABS: Hemoglobin A1C 5.7 % (<5.7)
[2024-01-30 18:09] LABS: Iron 32 ug/dL (37-170)
[2024-01-30 18:18] LABS: Percent Iron Saturation 7 % (20-50)
== END 2024-01-30 17:12 | disposition home or self-care (01) ==
PROVIDERS: PCP Physician Assistant; Visit Provider Physician Assistant
DX: R73.9 Hyperglycemia, unspecified (principal); D64.9 Anemia, unspecified
CPT/HCPCS: 36415; 83036; 83540; 83550

== ENCOUNTER 2024-04-22 14:06 | Emergency (ER) | payer MEDICARE, SELFPAY ==
--- NOTE | ~2024-04-22 | CT_ITS ---
EXAMINATION: CT abdomen pelvis w con DATE: 04/22/2024 15:28 INDICATION: Melena. TECHNIQUE: Computed tomography (CT) of the abdomen and pelvis was performed with 100 mL Omnipaque 350 intravenous contrast. Automated exposure control and iterative reconstruction technique were employe d. The dose-length product was 324.34 mGy-cm. COMPARISON: CT abdomen and pelvis 08/17/2023 FINDINGS: The visualized portions of the lung bases demonstrate chronic interstitial lung disease. Ca lcified right lung nodules and calcified right hilar lymph nodes are consistent with old edematous di sease. No pleural effusion. The heart size is normal. There are coronary artery calcifications. No pe ricardial effusion. There is a small sliding hiatal hernia. There is a 13 mm cyst in the liver. There are gallstones in the gallbladder, which is normal in size. Calcifications in the spleen are consist ent with old granulomatous disease. The pancreas and adrenal glands are normal. There is cortical thi nning in the kidneys. There are cysts in the kidneys measuring up to 7 mm on the right. There is a 2 mm stone in left kidney. There are bilateral inguinal hernias containing fat. There is diverticulosis of the colon without evidence of diverticulitis. The appendix is not visualized. There is calcified atherosclerosis of the aorta and many of the other arteries. There are no pathologically enlarged lym ph nodes. There is no free intraperitoneal fluid. There is severe thoracic and lumbar spondylosis. Th ere is a chronic compression fracture of T12. IMPRESSION: 1. Small sliding hiatal hernia. Reviewed, dictated and finalized at location A.
[2024-04-22 14:18] VITALS: BP 174/80; PULSE 94; RESP 18; TEMP 36.8; O2SAT 96
--- NOTE | 2024-04-22 14:22 | ED.GIBLEED ---
HPI - GI Bleed General Chief complaint: GI Bleed <JOSE Arroyo Last Filed: 04/22/24 14:28> Stated complaint: black stools <OJSE Arroyo Last Filed: 04/22/24 14:28> Time Seen by Provider: 04/22/24 14:22 <JOSE Arroyo Last Filed: 04/22/24 14:28> Focused HPI: Patient is an 83 y/o female, with pmh of dementia, who presents to the ED with report of melena. Patient reports having melena, coal black stools for the past 1 month. She told her family member about it today who brought her here for further evaluation. Patient denies taking pepto bismol. Has previously been on iron supplements. She denies any BRBPR, N/V/D, abdominal pain, urinary complaints. She is not on any anticoagulants. GENERAL: Elderly, frail, and in no acute distress. HEAD: Normocephalic, atraumatic. CHEST: Clear to auscultation. ?No respiratory distress. HEART: Regular rate and rhythm.?+murmur ABD: No appreciable tenderness in abdomen. Normoactive BS. NEURO: ?Alert and oriented x3. Patient screened in triage and initial orders placed.? ?Additional care and disposition to be based upon?diagnostic testing and treatment. <Olga Lyle PA-C - Last Filed: 04/22/24 14:28> Source: patient <JOSE Arroyo Last Filed: 04/22/24 14:28> Mode of arrival: ambulatory <JOSE Arroyo Last Filed: 04/22/24 14:28> Limitations: no limitations <JOSE Arroyo Last Filed: 04/22/24 14:28> History of Present Illness HPI Narrative: Patient is an 83 year old female with history of dementia, neuropathy here with black stools x 1 month. Patient states that she has had black stools for the last month, no associated abdominal pain or bright red blood per rectum. Patient denies prior history of GI bleed, does not believe she has had a prior colonoscopy. She does take iron supplementation. She has not been taking pepto-bismol. She denies any chest pain, shortness of breath, light headedness. Today she told her son about the symptoms and he brought her into the hospital for evaluation. He does not believe she is on any blood thinners. <Ana Chambers MD - Last Filed: 04/22/24 20:20> Related Data Home medications: Home Medications Medication Instructions Recorded Confirmed multivitamin (Multiple Vitamins 1 tablet PO DAILY 06/27/20 01/15/24 tablet) citalopram 20 mg tablet (Celexa) 20 mg PO DAILY 08/17/23 01/15/24 <Olga Lyle PA-C - Last Filed: 04/22/24 14:28> Allergies/Adverse reactions: Allergies Allergy/AdvReac Type Severity Reaction Status Date / Time Penicillins Allergy Severe breathing Verified 02/05/24 14:15 problems amoxicillin Allergy Mild Unknown Verified 02/05/24 14:15 POTASSIUM CLAVULANATE Allergy Mild Unknown Uncoded 02/05/24 14:15 <Olga Lyle PA-C - Last Filed: 04/22/24 14:28> Review of Systems Review of Systems: All systems reviewed & are unremarkable except as noted in HPI and below <Ana Chambers MD - Last Filed: 04/22/24 20:20> PMFSH Past Medical History Medical History: Medical History (Updated 04/22/24 @ 20:12 by Ana Chambers MD) Dementia <Olga Lyle PA-C - Last Filed: 04/22/24 14:28> Family History Family History: Family History Other Diabetes mellitus <Olga Lyle PA-C - Last Filed: 04/22/24 14:28> Social History Social History: Social History Smoking status: Never smoker Second hand tobacco smoke exposure: No Alcohol intake: never Alcohol use details: very rarely Substance use: never Substance use type: does not use Lack of Transportation: No Lack of Food: Never True Current Housing: I Have Housing Concerned About Future Housing: No Difficulty Paying Gas/Electric Bills: No Difficulty Paying for Meds:
[2024-04-22] MEDS: PANTOPRAZOLE SODIUM IV 40 MG VIAL IV PUSH (14:31)
[2024-04-22 14:40] LABS: Basophils Absolute Auto 0.1 K/mm3 (0.0-0.1); Basophils Percent Auto 0.8 % (0.2-1.2); Eosinophils Absolute Auto 0.1 K/mm3 (0-0.3); Eosinophils Percent Auto 1.7 % (0-4.4); Hematocrit 39.3 % (37.0-47.0); Hemoglobin 12.9 g/dL (12.0-15.0); Immature Granulocyte Absolute 0.02 K/mm3 (0.00-0.031); Immature Granulocyte Percent A 0.3 % (0-0.5); Lymphocytes Absolute Auto 1.81 K/mm3 (0.9-3.2); Lymphocytes Percent Auto 27.5 % (18.3-44.2); Mean Corpuscular HGB Conc 32.8 g/dl (32-36); Mean Corpuscular Hemoglobin 29.2 pg (26-34); Mean Corpuscular Volume 88.9 fl (80-100); Mean Platelet Volume 9.3 fl (7.4-10.4); Monocytes Absolute Auto 0.9 K/mm3 (0.1-0.6); Monocytes Percent Auto 13.7 % (2.6-8.5); Neutrophils Absolute Auto 3.7 K/mm3 (1.3-6.7); Platelet Count Result 329 k/mm3 (150-375); Red Blood Count 4.42 M/mm3 (4.2-5.4); Red Cell Distribution Width 16.6 % (11.5-14.5); White Blood Count 6.6 K/mm3 (4.5-10.0)
[2024-04-22 14:55] LABS: Alanine Aminotransferase 22 U/L (6-35); Albumin Level 4.7 g/dL (3.5-5.1); Alkaline Phosphatase 67 U/L (38-126); Anion Gap 5 mmol/L (4-12); Aspartate Amino Transferase 34 U/L (14-36); Bilirubin,Total 0.4 mg/dL (0.2-1.3); Blood Urea Nitrogen 13 mg/dL (7-17); Calcium 9.4 mg/dL (8.4-10.2); Carbon Dioxide 32 mmol/L (22-30); Chloride 96 mmol/L (98-107); Estimated CRCL calculation 34 ml/min; Estimated Glomerular Filt Rate > 60; Glucose 106 mg/dL (65-110); Lipase 98 U/L (23-300); Potassium 4.1 mmol/L (3.4-5.0); Sodium 133 mmol/L (137-145)
[2024-04-22 14:56] LABS: Lactic Acid Reflex 1.1 mmol/L (0.7-2.0)
[2024-04-22 15:01] LABS: INR 0.9; Partial Thromboplastin Time 29.8 Seconds (22.3-36.8); Prothrombin Time 12.6 Seconds (11.1-14.7)
--- NOTE | 2024-04-22 18:46 | ECG_ITS ---
SEE SCANNED COPY FOR CONFIRMED REPORT MTDD
[2024-04-22 19:23] VITALS: BP 145/74; PULSE 80; RESP 16; O2SAT 98
--- NOTE | 2024-04-22 20:14 | PC.NURSE ---
RN called to bedside after assisting pt to the bathroom. RN informed by pt and family member that they would just like to go home as the family member is due for his scheduled insulin injection. I explained that the EDP wants to perform one more test, but pt denies. IV removed. Pt ambulatory from ED with steady gait with family. Given return precautions.
== END 2024-04-22 20:16 | disposition home or self-care (01) ==
PROVIDERS: Physician Assistant; Emergency Provider Student in an Organized Health Care Education/Training Program; PCP Physician Assistant
DX: R19.5 Other fecal abnormalities (principal); F03.90 Unspecified dementia, unspecified severity, without behavioral disturbance, psychotic disturbance, mood disturbance, and anxiety; Z79.899 Other long term (current) drug therapy
CPT/HCPCS: 36415; 74177; 80053; 83605; 83690; 85025; 85610; 85730; 86850; 86900; 86901; 93005; 96374; 99284; C9113; Q9967

== ENCOUNTER 2024-06-10 14:36 | Outpatient (CLI) | payer MEDICARE, SELFPAY ==
[2024-06-10 15:21] LABS: Basophils Percent Auto 0.6 % (0.2-1.2); Eosinophils Absolute Auto 0.1 K/mm3 (0-0.3); Eosinophils Percent Auto 1.5 % (0-4.4); Hematocrit 38.5 % (37.0-47.0); Hemoglobin 12.8 g/dL (12.0-15.0); Immature Granulocyte Absolute 0.04 K/mm3 (0.00-0.031); Immature Granulocyte Percent A 0.6 % (0-0.5); Lymphocytes Absolute Auto 2.02 K/mm3 (0.9-3.2); Lymphocytes Percent Auto 29.7 % (18.3-44.2); Mean Corpuscular HGB Conc 33.2 g/dl (32-36); Mean Corpuscular Hemoglobin 30.3 pg (26-34); Mean Platelet Volume 9.2 fl (7.4-10.4); Monocytes Absolute Auto 0.9 K/mm3 (0.1-0.6); Monocytes Percent Auto 12.8 % (2.6-8.5); Neutrophils Absolute Auto 3.7 K/mm3 (1.3-6.7); Neutrophils Percent Auto 54.8 % (45.5-73.1); Platelet Count Result 312 k/mm3 (150-375); Red Blood Count 4.23 M/mm3 (4.2-5.4); Red Cell Distribution Width 14.6 % (11.5-14.5); White Blood Count 6.8 K/mm3 (4.5-10.0)
[2024-06-10 16:22] LABS: Alanine Aminotransferase 22 U/L (6-35); Albumin Level 4.5 g/dL (3.5-5.1); Alkaline Phosphatase 75 U/L (38-126); Anion Gap 8 mmol/L (4-12); Aspartate Amino Transferase 31 U/L (14-36); Bilirubin,Total 0.4 mg/dL (0.2-1.3); Blood Urea Nitrogen 11 mg/dL (7-17); Calcium 9.2 mg/dL (8.4-10.2); Carbon Dioxide 32 mmol/L (22-30); Chloride 95 mmol/L (98-107); Estimated Glomerular Filt Rate > 60; Glucose 89 mg/dL (65-110); Potassium 4.3 mmol/L (3.4-5.0); Sodium 135 mmol/L (137-145)
[2024-06-10 17:27] LABS: Folic Acid > 20.0 ng/mL (2.76->20); Vitamin B12 > 1000.0 pg/mL (239-931)
[2024-06-14 15:09] LABS: Vitamin D 1,25 (OH)2 Total 48 pg/mL (18-72); Vitamin D2 1,25 (OH)2 <8 pg/mL; Vitamin D3 1,25 (OH)2 48 pg/mL
[2024-06-15 06:59] LABS: Methylmalonic Acid 137 nmol/L (85-423)
== END 2024-06-10 14:37 | disposition home or self-care (01) ==
PROVIDERS: PCP Physician Assistant; Visit Provider Psychiatry & Neurology Neurology
DX: F02.80 Dementia in other diseases classified elsewhere, unspecified severity, without behavioral disturbance, psychotic disturbance, mood disturbance, and anxiety (principal); G30.1 Alzheimer's disease with late onset; E55.9 Vitamin D deficiency, unspecified
CPT/HCPCS: 36415; 80053; 82607; 82652; 82746; 83921; 84443; 85025